=== PATIENT | female | born 1990 | race Asian ===

== ENCOUNTER 2017-10-16 17:40 | Observation (INO) | payer OTHER ==
[~2017-10-16] VITALS: Ht 154.9 cm; Wt 63.0 kg
[2017-10-16 19:50] VITALS: BP_SYST 116
== END 2017-10-16 21:00 | disposition home or self-care (01) ==
LOC: SPU 17:40
PROVIDERS: ADMIT Specialist; ATTEND Specialist
DX: O99.89 Other specified diseases and conditions complicating pregnancy, childbirth and the puerperium (principal); M54.5 Low back pain; O26.893 Other specified pregnancy related conditions, third trimester; R10.30 Lower abdominal pain, unspecified; Z3A.37 37 weeks gestation of pregnancy
CPT/HCPCS: 59025; 81002; G0378

== ENCOUNTER 2017-10-30 07:10 | Observation (INO) | payer OTHER ==
[~2017-10-30] VITALS: Ht 154.9 cm; Wt 63.5 kg
== END 2017-10-30 09:45 | disposition home or self-care (01) ==
LOC: SPU 07:10
PROVIDERS: ADMIT Specialist; ATTEND Specialist
DX: O26.853 Spotting complicating pregnancy, third trimester (principal); Z3A.39 39 weeks gestation of pregnancy
CPT/HCPCS: 81002; G0378

== ENCOUNTER 2017-11-01 01:40 | Inpatient (IN) | payer OTHER ==
[~2017-11-01] VITALS: Ht 154.9 cm; Wt 63.5 kg
[2017-11-01] MEDS: LR 1,000 ML IV SCH (00:54)
[2017-11-01] MEDS ORDERED: OXYTOCIN/0.9 % SODIUM CHLORIDE 1,000 ML IV SCH (18:04)
[2017-11-01 18:06] VITALS: BP_SYST 111
[2017-11-01] MEDS ORDERED: TERBUTALINE SULFATE 1 MG/ML VIAL SUBCUT ONE (18:15)
[2017-11-01] MEDS ORDERED: DINOPROSTONE 10 MG SUPP VG ONE (18:15)
[2017-11-01] MEDS ORDERED: NALBUPHINE HCL 10 MG/ML AMP IM PRN (18:15)
[2017-11-01 18:37] LABS: BASOPHILS # (AUTO) 0.1 K/uL (0.0-0.2); BASOPHILS % (AUTO) 0.7 % (0.0-2.0); EOSINOPHILS % (AUTO) 0.4 % (0.0-4.0); HEMOGLOBIN 12.8 g/dL (12.0-16.0); LYMPHOCYTES # (AUTO) 2.1 K/uL (1.0-5.5); LYMPHOCYTES % (AUTO) 19.2 % (20.5-51.5); MEAN CORPUSCULAR HEMOGLOBIN 29 pg (27-31); MEAN CORPUSCULAR HGB CONC 33 % (32-36); MEAN CORPUSCULAR VOLUME 87 fL (79.0-98.0); MONOCYTES # (AUTO) 0.7 K/uL (0.0-1.0); MONOCYTES % (AUTO) 6.4 % (1.7-9.3); NEUTROPHILS # (AUTO) 7.8 K/uL (1.8-7.7); NEUTROPHILS % (AUTO) 73.3 % (40.0-70.0); PLATELET COUNT (AUTO) 180 K/uL (130-430); RED BLOOD CELL COUNT(AUTO) 4.47 MIL/uL (4.2-6.2); RED CELL DISTRIBUTION WIDTH 14.5 % (9.0-15.0); WHITE BLOOD COUNT (AUTO) 10.7 K/uL (4.8-10.8)
[2017-11-01] MEDS ORDERED: AMPICILLIN SODIUM 2 GM in NS 100 ML IV PRN (20:45)
[2017-11-01] MEDS ORDERED: AMPICILLIN SODIUM 1 GM in NS 50 ML IV PRN (20:45)
[2017-11-02] MEDS ORDERED: AMPICILLIN SODIUM 2 GM VIAL ONE (05:40)
[2017-11-02] MEDS: LR 1,000 ML IV SCH ×3 (09:37→14:35)
[2017-11-02] MEDS ORDERED: AMPICILLIN SODIUM 1 GM VIAL ONE ×2 (09:51→21:26)
[2017-11-02] MEDS ORDERED: fentaNYL CITRATE/PF 100 MCG/2 ML AMP ONE (13:20)
[2017-11-02] MEDS ORDERED: ROPIVACAINE 0.2% 100 ML ONE ×2 (13:20→22:15)
[2017-11-02] MEDS ORDERED: LR 500 ML IV ONE (13:50)
[2017-11-02] MEDS: AMPICILLIN SODIUM 1 GM in NS 50 ML IV SCH ×3 (13:54→21:30)
[2017-11-02] MEDS ORDERED: fentaNYL CITRATE/PF 100 MCG/2 ML AMP EP ONE (14:00)
[2017-11-02] MEDS ORDERED: ePHEDrine sulfate 50 MG/ML VIAL IVP PRN (14:00)
[2017-11-02] MEDS ORDERED: FENT2mCg/mL-ROPIVA0.2%/NS EPID 150 ML EP SCH (14:00)
[2017-11-02] MEDS ORDERED: ONDANSETRON HCL 4 MG/2 ML VIAL ONE (18:45)
[2017-11-02] MEDS ORDERED: ONDANSETRON HCL 4 MG/2 ML VIAL IVP PRN (18:45)
[2017-11-03] MEDS ORDERED: OXYTOCIN/0.9 % SODIUM CHLORIDE 1,000 ML IV ONE (00:03)
[2017-11-03] MEDS ORDERED: SENNOSIDES/DOCUSATE SODIUM 1 TAB TABLET(SENOKOT-S) PO PRN (00:15)
[2017-11-03] MEDS ORDERED: WITCH HAZEL LEAF 1 MED.PAD MED.PAD TP PRN (00:15)
[2017-11-03] MEDS ORDERED: DIPH-TET-PERTUS Vaccine 0.5 ML VIAL (ADACEL) I.M. PRN (00:15)
[2017-11-03] MEDS ORDERED: HYDROCORTISONE 0.5%, 28.35 GM TOPICAL CREAM TP PRN (00:15)
[2017-11-03] MEDS ORDERED: DERMOPLAST SPRAY TP PRN (00:15)
[2017-11-03] MEDS ORDERED: RHO(D) IMMUNE GLOBULIN/MALTOSE 1500 UNITS/1.3 ML (WINHRO) IM PRN (00:15)
[2017-11-03] MEDS ORDERED: OXYCODONE/ACETAMINOPHEN 5-325 TABLET PO PRN ×2 (00:15)
[2017-11-03] MEDS ORDERED: LANOLIN 7 GM OINT. TP PRN (00:15)
[2017-11-03] MEDS ORDERED: HYDROcodone/ACETAMIN 5-325 MG TAB (NORCO/ VICODIN) PO PRN (00:15)
[2017-11-03] MEDS ORDERED: MEASLES,MUMPS&RUBELLA VACC/PF 12500 UNIT/0.5 ML VIAL SUBQ PRN (00:15)
[2017-11-03] MEDS ORDERED: METHYLERGONOVINE MALEATE 0.2 MG TABLET PO PRN (00:15)
[2017-11-03] MEDS ORDERED: METHYLERGONOVINE MALEATE 0.2 MG/ML AMP ONE (00:39)
[2017-11-03] MEDS: IBUPROFEN 600 MG TABLET PO SCH ×3 (05:56→18:02)
[2017-11-03] MEDS ORDERED: TEMAZEPAM 15 MG CAPSULE PO PRN (21:00)
[2017-11-03] MEDS: DOCUSATE SODIUM 100 MG CAPSULE PO PRN (21:40)
[2017-11-04] MEDS: IBUPROFEN 600 MG TABLET PO SCH ×3 (06:14→12:40)
[2017-11-04 06:29] LABS: BASOPHILS # (AUTO) 0.1 K/uL (0.0-0.2); BASOPHILS % (AUTO) 0.4 % (0.0-2.0); EOSINOPHILS # (AUTO) 0.1 K/uL (0.0-0.4); EOSINOPHILS % (AUTO) 0.9 % (0.0-4.0); HEMATOCRIT 30.3 % (36-48); HEMOGLOBIN 10.2 g/dL (12.0-16.0); LYMPHOCYTES # (AUTO) 2.6 K/uL (1.0-5.5); MEAN CORPUSCULAR HEMOGLOBIN 30 pg (27-31); MEAN CORPUSCULAR HGB CONC 34 % (32-36); MEAN CORPUSCULAR VOLUME 88 fL (79.0-98.0); MONOCYTES # (AUTO) 0.8 K/uL (0.0-1.0); NEUTROPHILS # (AUTO) 10.3 K/uL (1.8-7.7); NEUTROPHILS % (AUTO) 73.7 % (40.0-70.0); PLATELET COUNT (AUTO) 155 K/uL (130-430); RED BLOOD CELL COUNT(AUTO) 3.43 MIL/uL (4.2-6.2); RED CELL DISTRIBUTION WIDTH 14.8 % (9.0-15.0); WHITE BLOOD COUNT (AUTO) 13.9 K/uL (4.8-10.8)
[2017-11-04] MEDS: DOCUSATE SODIUM 100 MG CAPSULE PO PRN (12:39)
[2017-11-04] MEDS ORDERED: ROPIVACAINE 0.2% (NAROPIN) PF SOLUTION 100 ML BOTTLE EP ONE (16:46)
== END 2017-11-04 16:10 | disposition home or self-care (01) | DRG 775 ==
LOC: SPU 17:17
PROVIDERS: ADMIT Specialist; ATTEND Specialist
PROC: 10E0XZZ Delivery of Products of Conception, External Approach (ICD-10-PCS; principal; 2017-11-03)
PROC: 3E0P7VZ Introduction of Hormone into Female Reproductive, Via Natural or Artificial Opening (ICD-10-PCS; 2017-11-03)
PROC: 0HQ9XZZ Repair Perineum Skin, External Approach (ICD-10-PCS; 2017-11-03)
PROC: 3E0R3BZ Introduction of Anesthetic Agent into Spinal Canal, Percutaneous Approach (ICD-10-PCS; 2017-11-03)
PROC: 00HU33Z Insertion of Infusion Device into Spinal Canal, Percutaneous Approach (ICD-10-PCS; 2017-11-03)
DX: O99.824 Streptococcus B carrier state complicating childbirth (principal); O70.0 First degree perineal laceration during delivery; Z3A.40 40 weeks gestation of pregnancy; Z37.0 Single live birth
CPT/HCPCS: 36415; 81002-TC; 85025; 86592; 86886; 86900; 86901; 87081; 87536; 90715; J0290; J2210; J2300; J2405; J2590; J2795; J3010; J7120